=== PATIENT | female | born 1965 | race Caucasian/White ===

== ENCOUNTER → 2017-03-03 | Outpatient (CLI) | payer OTHER ==
[~2017-03-03] MED LIST: LEVO50TA PO
[2017-03-03 15:43] LABS: BLOOD UREA NITROGEN 16 mg/dL (7-18)
== END | disposition home or self-care (01) ==
LOC: STAR 14:39
PROVIDERS: ATTEND Neurological Surgery
DX: Z01.818 Encounter for other preprocedural examination (principal); M51.36 Other intervertebral disc degeneration, lumbar region; R79.1 Abnormal coagulation profile
CPT/HCPCS: 36415; 71020; 80048; 81001; 85025; 85610; 85730; 93005

== ENCOUNTER 2017-03-13 07:11 | Observation (INO) | payer OTHER ==
[~2017-03-13] VITALS: Ht 177.8 cm; Wt 107.2 kg
[~2017-03-13 07:11] MED LIST changes: +BACITRACIN 50,000 UNIT ONE; +BUPIVACAINE/PF 0.25% ONE; +BUPIVACAINE/PF-EPI 0.5% 1:200K ONE; +THROMBIN 5,000 UNIT VIAL TP ONE
[2017-03-13] MEDS ORDERED: LIDOCAINE 1%, 2ML ONE (08:04)
[2017-03-13 08:22] VITALS: BP 127/71
[2017-03-13] MEDS ORDERED: FENTANYL PF 250 MCG/5ML ONE (08:23)
[2017-03-13] MEDS ORDERED: MIDAZOLAM 1 MG/ML, 2ML ONE (08:24)
[2017-03-13] MEDS ORDERED: ROCURONIUM 10 MG/ML ONE (10:07)
[2017-03-13] MEDS ORDERED: PROPOFOL 10 MG/ML, 20ML ONE (10:07)
[2017-03-13] MEDS ORDERED: CEFAZOLIN 1,000 MG ONE (10:07)
[2017-03-13] MEDS ORDERED: DEXAMETHASONE 4 MG/ML, 1ML ONE (10:07)
[2017-03-13] MEDS ORDERED: ONDANSETRON 2MG/ML, 2ML ONE ×2 (10:07→12:08)
[2017-03-13] MEDS ORDERED: BUPIVACAINE/PF-EPI 0.5% 1:200K INFIL ONE (10:44)
[2017-03-13] MEDS ORDERED: FENTANYL PF 100 MCG/2ML EPIDPUSH ONE (10:45)
[2017-03-13] MEDS ORDERED: FENTANYL PF 100 MCG/2ML ONE (11:04)
[2017-03-13] MEDS ORDERED: OXYcodone 5 MG/5 ML ORAL.SOL UDC ONE (11:53)
[2017-03-13] MEDS ORDERED: ACETAMINOPHEN 650 MG/20.3 ML UDC ONE (11:53)
[2017-03-13] MEDS ORDERED: ACETAMINOPHEN 325 MG/10.15 ML UDC ONE (11:53)
[2017-03-13] MEDS ORDERED: CEFAZOLIN PMX 1GM/50ML 50 ML IVPB SCH (12:00)
[2017-03-13] MEDS ORDERED: OXYcodone/APAP 5/325MG TABLET PO PRN (12:00)
[2017-03-13] MEDS ORDERED: OXYcodone 5 MG/5 ML ORAL.SOL UDC PO PRN (12:00)
[2017-03-13] MEDS ORDERED: PHARMACY MAY ADJ FOR RENAL FX MC PRN (12:00)
[2017-03-13] MEDS ORDERED: D5%-0.9% NACL+KCL 20MEQ 1,000 ML IV SCH (12:00)
[2017-03-13] MEDS ORDERED: morphine SULFATE 10 MG/ML, 1ML IVPush PRN (12:00)
[2017-03-13] MEDS ORDERED: METHOCARBAMOL 750 MG TABLET PO PRN (12:00)
[2017-03-13] MEDS ORDERED: ONDANSETRON 2MG/ML, 2ML IVPush PRN ×2 (12:00)
[2017-03-13] MEDS ORDERED: PROMETHAZINE 25 MG/ML, 1ML IM PRN (12:00)
[2017-03-13] MEDS ORDERED: HYDROmorphone 1 MG/ML, 1ML IV PRN (12:00)
[2017-03-13] MEDS ORDERED: DIPHENHYDRAMINE 50 MG/ML, 1ML IVPush PRN (12:00)
[2017-03-13] MEDS ORDERED: HYDROcodone/APAP 5/325 TABLET PO PRN (12:00)
[2017-03-13] MEDS ORDERED: FENTANYL PF 100 MCG/2ML IV PRN (12:00)
[2017-03-13] MEDS ORDERED: HYDROcodone/APAP 10/325 MG TABLET PO PRN (12:00)
[2017-03-13] MEDS ORDERED: PROMETHAZINE 25 MG/ML, 1ML IV PRN (12:00)
[2017-03-13] MEDS ORDERED: LABETALOL 5MG/ML, 20ML IV PRN (12:00)
[2017-03-13] MEDS ORDERED: MEPERIDINE/PF 25MG/0.5ML IVPush PRN (12:00)
[2017-03-13] MEDS ORDERED: ACETAMINOPHEN 325 MG TABLET PO PRN (12:00)
[2017-03-13] MEDS ORDERED: PROMETHAZINE 25 MG/ML, 1ML ONE (12:08)
[2017-03-13] MEDS ORDERED: DIPHENHYDRAMINE 50 MG/ML, 1ML ONE (13:16)
[2017-03-13] MEDS ORDERED: METHOCARBAMOL 750 MG TABLET ONE (14:56)
[2017-03-13] MEDS ORDERED: SODIUM CHLORIDE FLUSH 10ML SYR IVF SCH (21:00)
[2017-03-14] MEDS ORDERED: LEVOTHYROXINE 50 MCG TABLET PO SCH (06:00)
== END 2017-03-13 16:35 | disposition home or self-care (01) ==
LOC: OUT 07:11 → ORIP 11:54
PROVIDERS: ADMIT Neurological Surgery; ATTEND Neurological Surgery
DX: M48.07 Spinal stenosis, lumbosacral region (principal); M51.17 Intervertebral disc disorders with radiculopathy, lumbosacral region; M12.9 Arthropathy, unspecified
CPT/HCPCS: 63056; 63057; 72100; G0378; J0690; J1100; J1200; J2250; J2405; J2550; J2704; J3010; J3490